=== PATIENT | male | born 1955 | race African-American/Black ===

== ENCOUNTER → 2018-10-09 | Outpatient (CLI) | payer OTHER | END | disposition home or self-care (01) | LOC: PF 07:28 | PROVIDERS: ATTEND Surgery | DX: R06.02 Shortness of breath (principal) | CPT/HCPCS: 94010; 94729 ==

== ENCOUNTER → 2018-10-09 | Outpatient (CLI) | payer OTHER ==
--- NOTE | 2018-10-09 10:25 | RAD ---
EXAM: LUMBAR SPINE 2 VIEWS. HISTORY: Low back pain. COMPARISON: None. FINDINGS: Alignment is maintained. Vertebral body heights are maintained, and no fractures are identified. Intervertebral disc heights are maintained. There is mild endplate remodeling at L3-4. Facet osteoarthritis appears at least moderate from L3 through S1. Atherosclerotic calcifications are noted. IMPRESSION: 1. Moderate facet osteoarthritis from L3 through S1. Electronically signed by: Gm De Luna MD (10/09/2018 10:22 AM) [facility]
--- NOTE | 2018-10-09 10:26 | RAD ---
EXAM: LEFT SHOULDER 3 VIEWS. HISTORY: Left shoulder pain and limited range of motion. COMPARISON: None. FINDINGS: No fractures are identified. Glenohumeral joint spaces and alignment are maintained. Acromioclavicular osteoarthritis is moderate. IMPRESSION: 1. Moderate acromioclavicular osteoarthritis. Electronically signed by: Gm De Luna MD (10/09/2018 10:23 AM) [facility]
== END | disposition home or self-care (01) ==
LOC: RAD 07:36
PROVIDERS: ATTEND Surgery
DX: M47.817 Spondylosis without myelopathy or radiculopathy, lumbosacral region (principal); M19.012 Primary osteoarthritis, left shoulder; I70.90 Unspecified atherosclerosis
CPT/HCPCS: 72100; 73030